=== PATIENT | female | born 1965 | race Native Hawaiian/Other Pacific Islander ===

== ENCOUNTER 2017-09-08 15:26 | Inpatient (IN) ==
--- NOTE | 2017-09-08 16:42 | ED ---
HPI General Chief complaint: Wound/Laceration Stated complaint: Toe pain/diabetic Time Seen by Provider: 09/08/17 16:04 Source: patient Mode of arrival: ambulatory Limitations: no limitations History of Present Illness HPI narrative: 51y female with a history of diabetes mellitus type 2 from [place] presents to the ED with a wound to the distal right 2nd toe. Says she noticed this toe swelling and red yesterday and it has worsened over the last day. She is concerned because she does not know why this is going on. She denies pain. She denies trauma to the area. Denies any other medical problems and only takes insulin for her diabetes. Denies fevers, chills, chest pain, shortness of breath, nausea, vomiting. Denies history of similar episodes. Onset (ago): day(s) Location: lower extremity Radiation: non-radiation Associated symptoms: fever/chills (chills) Treatments prior to arrival: none Related Data Home Medications Medication Instructions Recorded Confirmed insulin NPH and regular human 1 sliding scale dose SUB-Q UD 09/08/17 09/08/17 [Novolin 70/30 U-100 Insulin] Allergies Allergy/AdvReac Type Severity Reaction Status Date / Time No Known Allergies Allergy Unverified 09/08/17 16:37 Review of Systems Except as stated in HPI: all other systems reviewed are negative [facility] Medical History Medical History Diabetes (Acute) Social History Social History Substance History: No History of Abuse Second Hand Smoke Exposure: No Smoking Status: Never smoker How Often Do You Have a Drink Containing Alcohol: Never Recent Travel in [facility] within the Last 8 Weeks: No Recent Out of Country Travel within the Last 8 Weeks: Yes Immunization History Tetanus Immunization: Unsure Hx Influenza Vaccine This Season: No Exam Narrative Exam Narrative: GENERAL: WD, WN pleasant, resting comfortably in bed. SKIN: Focused skin assessment warm/dry. right foot, 2nd toe-ecchymosis present to the entire toe, distal aspect with a 1 -2 mm opening of skin with a frothy bloody discharge, no crepitus of the toe, no evidence of trauma, neurovascularly intact right lower extremity. HEAD: Atraumatic. Normocephalic. EYES: Pupils equal and round. No scleral icterus. No injection or drainage. ENT: No nasal bleeding or discharge. Mucous membranes pink and moist. NECK: Trachea midline. No JVD. CARDIOVASCULAR: Regular rate and rhythm. No murmur appreciated. RESPIRATORY: No accessory muscle use. Clear to auscultation. Breath sounds equal bilaterally. GASTROINTESTINAL: Abdomen soft, non-tender, nondistended. Hepatic and splenic margins not palpable. MUSCULOSKELETAL: No obvious deformities. No clubbing. No cyanosis. No edema. NEUROLOGICAL: Awake and alert. No obvious cranial nerve deficits. Motor grossly within normal limits. Normal speech. PSYCHIATRIC: Appropriate mood and affect; insight and judgment normal. Course Initial Documented Vital Signs Temperature 99 F 09/08/17 15:30 Pulse Rate 106 H 09/08/17 15:30 Respiratory Rate 20 09/08/17 15:30 Blood Pressure 197/86 H 09/08/17 15:30 Pulse Oximetry 98 09/08/17 15:30 Last Documented Vital Signs Temperature 97.9 F 09/09/17 08:00 Pulse Rate 81 09/09/17 08:00 Respiratory Rate 17 09/09/17 08:00 Blood Pressure 125/68 09/09/17 08:00 Pulse Oximetry 96 09/09/17 08:00 Medical Decision Making [facility] Narrative Medical decision making narrative: 51y female presents to the ED with concern of a wound to the right second toe. She denies pain or inciting events. Denies fevers but admits to chills. She is visiting from [place]. She says she has well controlled diabetes. No history of severe toe infections or amputations previously. Labs and xray consistent with osteomyelitis. Vancomycin and zosyn initiated. Wound culture obtained. I spoke with Dr. Shah who agreed to the admission. Differential Diagnosis Differential Diagnosis: Right foot osteomyelitis, cellulitis, erysipelas Lab Data Result diagrams: 09/09/17 07:50 09/09/17 07:50 Lab Results 09/08/17 09/08/17 09/08/17 Range/Units 17:45 17:45 17:45 WBC 12.4 H (4.0-11.0) th/mm3 RBC 4.44 (4.00-5.30) mil/mm3 Hgb 12.5 (11.6-15.3) gm/dL Hct 37.2 (35.0-46.0) % MCV 83.9 (80.0-100.0) fL MCH 28.1 (27.0-34.0) pg MCHC 33.5 (32.0-36.0) % RDW 12.9 (11.6-17.2) % Plt Count 316 (150-450) th/mm3 MPV 7.1 (7.0-11.0) fL Neut % (Auto) 82.0 H (16.0-70.0) % Lymph % (Auto) 12.2 (9.0-44.0) % [place] % (Auto) 5.0 (0.0-8.0) % Eos % (Auto) 0.3 (0.0-4.0) % Baso % (Auto) 0.5 (0.0-2.0) % Neut # (Auto) 10.2 H (1.8-7.7) th/mm3 Lymph # (Auto) 1.5 (1.0-4.8) th/mm3 [place] # (Auto) 0.6 (0.0-0.9) th/mm3 Eos # (Auto) 0.0 (0.0-0.4) th/mm3 Baso # (Auto) 0.1 (0.0-0.2) th/mm3 WBC Differential . Differential Comment Auto diff final ESR (0-30) mm/hr PT 11.4 (9.8-11.6) sec INR 1.1 Ratio APTT 25.9 (24.3-30.1) sec Sodium 135 L (136-145) meq/L Potassium 4.3 (3.5-5.1) meq/L Chloride 100 (98-107) meq/L Carbon Dioxide 26.7 (21.0-32.0) meq/L Anion Gap 8 (5-15) meq/L BUN 16 (7-18) mg/dL Creatinine 0.89 (0.50-1.00) mg/dL Estimated GFR 67 L (>89) mL/min POC Glucose (68-110) mg/dl Random Glucose 344 H (74-106) mg/dL Calcium 9.0 (8.5-10.1) mg/dL Total Bilirubin (0.2-1.0) mg/dL AST (15-37) U/L ALT (10-53) U/L Alkaline Phosphatase (45-117) U/L C-Reactive Protein (0.00-0.30) mg/dL Total Protein (6.4-8.2) g/dL Albumin (3.4-5.0) g/dL 09/08/17 09/08/17 09/08/17 Range/Units 17:45 17:45 21:08 WBC (4.0-11.0) th/mm3 RBC (4.00-5.30) mil/mm3 Hgb (11.6-15.3) gm/dL Hct (35.0-46.0) % MCV (80.0-100.0) fL MCH (27.0-34.0) pg MCHC (32.0-36.0) % RDW (11.6-17.2) % Plt Count (150-450) th/mm3 MPV (7.0-11.0) fL Neut % (Auto) (16.0-70.0) % Lymph % (Auto) (9.0-44.0) % [place] % (Auto) (0.0-8.0) % Eos % (Auto) (0.0-4.0) % Baso % (Auto) (0.0-2.0) % Neut # (Auto) (1.8-7.7) th/mm3 Lymph # (Auto) (1.0-4.8) th/mm3 [place] # (Auto) (0.0-0.9) th/mm3 Eos # (Auto) (0.0-0.4) th/mm3 Baso # (Auto) (0.0-0.2) th/mm3 WBC Differential Differential Comment ESR 49 H (0-30) mm/hr PT (9.8-11.6) sec INR Ratio APTT (24.3-30.1) sec Sodium (136-145) meq/L Potassium (3.5-5.1) meq/L Chloride (98-107) meq/L Carbon Dioxide (21.0-32.0) meq/L Anion Gap (5-15) meq/L BUN (7-18) mg/dL Creatinine (0.50-1.00) mg/dL Estimated GFR (>89) mL/min POC Glucose 298 H (68-110) mg/dl Random Glucose (74-106) mg/dL Calcium (8.5-10.1) mg/dL Total Bilirubin (0.2-1.0) mg/dL AST (15-37) U/L ALT (10-53) U/L Alkaline Phosphatase (45-117) U/L C-Reactive Protein 10.00 H (0.00-0.30) mg/dL Total Protein (6.4-8.2) g/dL Albumin (3.4-5.0) g/dL 09/08/17 09/09/17 09/09/17 Range/Units 21:14 07:37 07:50 WBC 9.6 (4.0-11.0) th/mm3 RBC 4.27 (4.00-5.30) mil/mm3 Hgb 12.2 (11.6-15.3) gm/dL Hct 35.8 (35.0-46.0) % MCV 83.9 (80.0-100.0) fL MCH 28.6 (27.0-34.0) pg MCHC 34.1 (32.0-36.0) % RDW 12.6 (11.6-17.2) % Plt Count 319 (150-450) th/mm3 MPV 6.8 L (7.0-11.0) fL Neut % (Auto) 62.1 (16.0-70.0) % Lymph % (Auto) 29.7 (9.0-44.0) % [place] % (Auto) 6.6 (0.0-8.0) % Eos % (Auto) 1.2 (0.0-4.0) % Baso % (Auto) 0.4 (0.0-2.0) % Neut # (Auto) 6.0 (1.8-7.7) th/mm3 Lymph # (Auto) 2.9 (1.0-4.8) th/mm3 [place] # (Auto) 0.6 (0.0-0.9) th/mm3 Eos # (Auto) 0.1 (0.0-0.4) th/mm3 Baso # (Auto) 0.0 (0.0-0.2) th/mm3 WBC Differential . Differential Comment Auto diff final ESR (0-30) mm/hr PT (9.8-11.6) sec INR Ratio APTT (24.3-30.1) sec Sodium 138 (136-145) meq/L Potassium 4.0 (3.5-5.1) meq/L Chloride 103 (98-107) meq/L Carbon Dioxide 29.3 (21.0-32.0) meq/L Anion Gap 6 (5-15) meq/L BUN 14 (7-18) mg/dL Creatinine 0.77 (0.50-1.00) mg/dL Estimated GFR 79 L (>89) mL/min POC Glucose 280 H (68-110) mg/dl Random Glucose 260 H (74-106) mg/dL Calcium 8.9 (8.5-10.1) mg/dL Total Bilirubin 0.4 (0.2-1.0) mg/dL AST 28 (15-37) U/L ALT 37 (10-53) U/L Alkaline Phosphatase 87 (45-117) U/L C-Reactive Protein (0.00-0.30) mg/dL Total Protein 8.3 H (6.4-8.2) g/dL Albumin 3.2 L (3.4-5.0) g/dL 09/09/17 Range/Units 07:50 WBC (4.0-11.0) th/mm3 RBC (4.00-5.30) mil/mm3 Hgb (11.6-15.3) gm/dL Hct (35.0-46.0) % MCV (80.0-100.0) fL MCH (27.0-34.0) pg MCHC (32.0-36.0) % RDW (11.6-17.2) % Plt Count (150-450) th/mm3 MPV (7.0-11.0) fL Neut % (Auto) (16.0-70.0) % Lymph % (Auto) (9.0-44.0) % [place] % (Auto) (0.0-8.0) % Eos % (Auto) (0.0-4.0) % Baso % (Auto) (0.0-2.0) % Neut # (Auto) (1.8-7.7) th/mm3 Lymph # (Auto) (1.0-4.8) th/mm3 [place] # (Auto) (0.0-0.9) th/mm3 Eos # (Auto) (0.0-0.4) th/mm3 Baso # (Auto) (0.0-0.2) th/mm3 WBC Differential Differential Comment ESR (0-30) mm/hr PT (9.8-11.6) sec INR Ratio APTT (24.3-30.1) sec Sodium 138 (136-145) meq/L Potassium 4.4 (3.5-5.1) meq/L Chloride 107 (98-107) meq/L Carbon Dioxide 25.6 (21.0-32.0) meq/L Anion Gap 5 (5-15) meq/L BUN 15 (7-18) mg/dL Creatinine 0.72 (0.50-1.00) mg/dL Estimated GFR 85 L (>89) mL/min POC Glucose (68-110) mg/dl Random Glucose 296 H (74-106) mg/dL Calcium 8.3 L (8.5-10.1) mg/dL Total Bilirubin 0.4 (0.2-1.0) mg/dL AST 29 (15-37) U/L ALT 36 (10-53) U/L Alkaline Phosphatase 72 (45-117) U/L C-Reactive Protein (0.00-0.30) mg/dL Total Protein 7.4 D (6.4-8.2) g/dL Albumin 2.8 L (3.4-5.0) g/dL Imaging Data Radiologist's impression: Foot X-Ray 09/08/17 16:37 CONCLUSION: Resorption of the tuft of the second distal phalanx with overlying soft tissue swelling. The findings are characteristic of osteomyelitis. Discharge Plan Discharge Disposition Patient Disposition: 30 Still Patient Discharge Condition Condition: Stable Discharge Details Diagnosis: Osteomyelitis Physicians Team ED Provider: Rachel Machado ED Midlevel Provider: Lisy Song Primary Care Provider: UNKNOWN, Attending Provider: Angel Jimenez Other Providers: Mee Burns ; Halima Viramontes Status ED Status: Left Department Discharge Information Discharge Date/Time: 09/08/17 20:56
--- NOTE | 2017-09-08 17:14 | XR ---
EXAM DATE: 09/08/2017 4:57 PM EDT AGE/SEX: 51 years / Female INDICATIONS: Right foot second digit pain. CLINICAL DATA: This is the patient's initial encounter. Patient reports that signs and symptoms have been present for 2 days and indicates a pain score of 3/10. MEDICAL/SURGICAL HISTORY: . Diabetes None. COMPARISON: No prior exams available for comparison. FINDINGS: Limited AP and lateral views of the right foot were obtained and demonstrate focal soft tissue swelli ng over the distal second digit. There is resorption of the distal phalanx with mild irregularity. Th ere are no radiopaque foreign bodies. There are mild degenerative changes in the metatarsal tarsal misti ints and intertarsal joints. There is normal alignment. CONCLUSION: Resorption of the tuft of the second distal phalanx with overlying soft tissue swelling. The findings are characteristic of osteomyelitis. Electronically signed by: Juan Carlos Sabillon MD 09/08/2017 5:13 PM EDT
[2017-09-08] MEDS ORDERED: Piperacil/Tazo 3.375 GM Premix 50 ML IV.SIG ONE (17:30)
[2017-09-08 18:11] LABS: Baso # (Auto) 0.1 th/mm3 (0.0-0.2); Baso % (Auto) 0.5 % (0.0-2.0); Eos % (Auto) 0.3 % (0.0-4.0); Hematocrit 37.2 % (35.0-46.0); Hemoglobin 12.5 gm/dL (11.6-15.3); Lymph # (Auto) 1.5 th/mm3 (1.0-4.8); Lymph % (Auto) 12.2 % (9.0-44.0); Mean Corpuscular HGB Conc 33.5 % (32.0-36.0); Mean Corpuscular Hemoglobin 28.1 pg (27.0-34.0); Mean Corpuscular Volume 83.9 fL (80.0-100.0); Mean Platelet Volume 7.1 fL (7.0-11.0); Mono # (Auto) 0.6 th/mm3 (0.0-0.9); Neut # (Auto) 10.2 th/mm3 (1.8-7.7); Platelet Count 316 th/mm3 (150-450); Red Blood Count 4.44 mil/mm3 (4.00-5.30); Red Cell Distribution Width 12.9 % (11.6-17.2); White Blood Count 12.4 th/mm3 (4.0-11.0)
[2017-09-08 18:19] LABS: Activated Partial Thrombo Time 25.9 sec (24.3-30.1); INR 1.1 Ratio; Prothrombin Time 11.4 sec (9.8-11.6)
[2017-09-08 18:23] LABS: Carbon Dioxide 26.7 meq/L (21.0-32.0); Potassium 4.3 meq/L (3.5-5.1)
[2017-09-08] MEDS ORDERED: Vancomycin Inj 1,500 MG in Sodium Chlor 0.9% Inj 500 ML IV.SIG ONE (18:26)
[2017-09-08] MEDS ORDERED: Morphine Inj 4 MG/ML Vial IV.PUSH PRN (19:21)
[2017-09-08] MEDS ORDERED: Bisacodyl 10 MG Supp RECTAL PRN (19:22)
[2017-09-08] MEDS ORDERED: Temazepam 15 MG Capsule PO PRN (19:22)
[2017-09-08] MEDS ORDERED: Acetaminophen 325 MG Tablet PO PRN (19:22)
[2017-09-08] MEDS ORDERED: Dextrose 50% in Water 50 ML Vial IV.PUSH PRN (19:23)
--- NOTE | 2017-09-08 19:24 | P.HPIM ---
History of Present Illness Primary Care Physician: UNKNOWN History of Present Illness: This is a 51-year-old female visiting from [place] with a PMH of DM who presented to the ER with complaints of right second toe swelling and redness x2 days. Denies injury/trauma or previous h/o similar symptoms. Reports subjective fever/chills, but no nausea, vomiting, diarrhea, cough or sick contacts. On arrival, BP 197/86, HR 106, O2 sat 98% on RA, Temp 99.7. WBC 12.4. INR 1.1. Chemistry essentially unremarkable except for GFR 67, BS 344. CRP 10. Foot X-ray with resorption of the tuft of second distal phalanx with overlying soft tissue swelling, characteristic of osteomyelitis. S/p Vanc/ Zosyn in ER. - Diagnosis (1) Sepsis (2) Osteomyelitis (3) DM (diabetes mellitus) Review of Systems All other systems reviewed negative except as stated in HPI PMFSH - History History Provided By: Patient - Medical History Medical History: Medical History (Last Updated 09/08/17 @ 15:55 by Bennie Wilde) Diabetes - Tobacco History Second Hand Smoke Exposure: No Tobacco Use In Past 30 Days: No Smoking Status: Never smoker - Alcohol History How Often Do You Have a Drink Containing Alcohol: Monthly or less - Substance Use History Substance History: No History of Abuse - Travel History Recent Travel in the [place] Within the Last 8 Weeks: No Recent Travel Out of the Country Within the Last 8 Weeks: Yes - Immunization History Tetanus Immunization: Unsure Hx Influenza Vaccine This Season: No Medications and Allergies Active Medications: Active Medications Vancomycin HCl 1,500 mg/ (Sodium Chloride) 515 mls @ 250 mls/hr IV.SIG ONCE ONE Stop: 09/08/17 20:29 Allergies Allergy/AdvReac Type Severity Reaction Status Date / Time No Known Allergies Allergy Unverified 09/08/17 16:37 Home Medications Medication Instructions Recorded Confirmed Type insulin NPH and regular human 1 sliding scale dose SUB-Q UD 09/08/17 09/08/17 History [Novolin 70/30 U-100 Insulin] Exam Vital signs: Vital Signs 09/08/17 15:30 09/08/17 15:34 Temperature 99 F 99.7 F H Pulse Rate 106 H 97 H Respiratory Rate 20 18 Blood Pressure 197/86 H 160/69 H Pulse Oximetry 98 100 Intake & Output 07/09/08/17 09/09/17 06:59 18:59 06:59 Weight 72.575 kg Narrative: PE: GENERAL: Very pleasant middle-aged female in no acute distress. HEENT: PERRLA, EOMI. No scleral icterus or conjunctival pallor. No lid lag or facial droop. CARDIOVASCULAR: Regular rate and rhythm. No obvious murmurs to auscultation. No chest tenderness to palpation. RESPIRATORY: No obvious rhonchi or wheezing. Clear to auscultation. Breath sounds equal bilaterally. GASTROINTESTINAL: Abdomen soft, non-tender, nondistended. BS normal. MUSCULOSKELETAL: Extremities without clubbing, cyanosis, or edema. No obvious deformities. Right 2nd toe w/ ecchymosis, sanguinous drainage from tip. No tenderness to palpation. NEUROLOGICAL: Awake, alert and oriented x4. No focal neurologic deficits. Moving both upper and lower extremities spontaneously. Results - Labs CBC & Chem 7: 09/08/17 17:45 09/08/17 17:45 Labs: Short CBC 09/08/17 Range/Units 17:45 WBC 12.4 H (4.0-11.0) th/mm3 Hgb 12.5 (11.6-15.3) gm/dL Hct 37.2 (35.0-46.0) % Plt Count 316 (150-450) th/mm3 BMP 09/08/17 17:45 Sodium 135 L Potassium 4.3 Chloride 100 Carbon Dioxide 26.7 BUN 16 Creatinine 0.89 Calcium 9.0 - Imaging Impressions Foot X-Ray 09/08/17 16:37 CONCLUSION: Resorption of the tuft of the second distal phalanx with overlying soft tissue swelling. The findings are characteristic of osteomyelitis. Caprini VTE Risk Assessment Caprini VTE Risk Assessment: No/Low Risk (score <= 1) Caprini Risk Assessment Model: Point Value = 1 Point Value = 2 Point Value = 3 Point Value = 5 Age 41-60 Minor surgery BMI > 25 kg/m2 Swollen legs Varicose veins or History of unexplained or recurrent spontaneous Oral contraceptives or hormone replacement Sepsis (< 1 month) Serious lung disease, including pneumonia (< 1 month) Abnormal pulmonary function Acute myocardial infarction Congestive heart failure (< 1 month) History of inflammatory bowel disease Medical patient at bed rest Age 61-74 Arthroscopic surgery Major open surgery (> 45 min) Laparoscopic surgery (> 45 min) Malignancy Confined to bed (> 72 hours) Immobilizing plaster cast Central venous access Age >= 75 History of VTE Family history of VTE Factor V Leiden Prothrombin [id number] Lupus anticoagulant Anticardiolipin antibodies Elevated serum homocysteine Heparin-induced thrombocytopenia Other congenital or acquired thrombophilia Stroke (< 1 month) Elective arthroplasty Hip, pelvis, or leg fracture Acute spinal cord injury (< 1 month) Prophylaxis Regimen: Total Risk Factor Score Risk Level Prophylaxis Regimen 0-1 Low Early ambulation 2 Moderate Order ONE of the following: *Sequential Compression Device (SCD) *Heparin 5000 units SQ BID 3-4 Higher Order ONE of the following medications: *Heparin 5000 units SQ TID *Enoxaparin/Lovenox 40 mg SQ daily (WT < 150 kg, CrCl > 30 mL/min) *Enoxaparin/Lovenox 30 mg SQ daily (WT < 150 kg, CrCl > 10-29 mL/min) *Enoxaparin/Lovenox 30 mg SQ BID (WT < 150 kg, CrCl > 30 mL/min) AND/OR *Sequential Compression Device (SCD) 5 or more Highest Order ONE of the following medications: *Heparin 5000 units SQ TID (Preferred with Epidurals) *Enoxaparin/Lovenox 40 mg SQ daily (WT < 150 kg, CrCl > 30 mL/min) *Enoxaparin/Lovenox 30 mg SQ daily (WT < 150 kg, CrCl > 10-29 mL/min) *Enoxaparin/Lovenox 30 mg SQ BID (WT < 150 kg, CrCl > 30 mL/min) AND *Sequential Compression Device (SCD) Assessment and Plan - Assessment (1) Sepsis Code(s): A41.9 - Sepsis, unspecified organism Status: Acute (2) Osteomyelitis Code(s): M86.9 - Osteomyelitis, unspecified Status: Acute (3) DM (diabetes mellitus) Code(s): E11.9 - Type 2 diabetes mellitus without complications Status: Acute - Plan A/P: 1. Sepsis: Temp 99.7, HR 106, WBC 12, Source-Right toe infection, s/p Blood Cultures, Vanc/Zosyn, continue w/ IV Abx, follow up cultures, continue IVF. 2. Osteomyelitis: Right 2nd Toe, X-ray w/ findings indicative of osteomyelitis , images reviewed. Continue w/ IV Abx as above, Consult Podiatry for further evaluation/intervention, consult ID for recommendations on antibiotic therapy/ duration. Pt lives in [place], scheduled to return home 09/26/17, will need to make arrangements w/ PCP in [place] for continuation of long-term antibiotics if needed. 3. DM: Uncontrolled. BS 300's. Sliding scale w/ Accu-Cheks. Check Hgb A1c. 4. DVT Prophylaxis: Heparin sq 5. Social work for d/c planning as needed. 6. Case discussed w/ ER Physician at length, labs/records/imaging reviewed by me. (2) Osteomyelitis Qualifiers: Osteomyelitis type: other acute Osteomyelitis location: foot Laterality: right Qualified Code(s): M86.171 - Other acute osteomyelitis, right ankle and foot
[2017-09-08] MEDS ORDERED: Vancomycin Consult Pharmacy 1 EACH OTHER SCH (20:00)
[2017-09-08] MEDS: Sod Chloride 0.9% Inj 1,000 ML IV.CONT SCH (21:11)
[2017-09-08] MEDS: Senna/Docusate Sodium 8.6/50 MG Tablet PO SCH (21:12)
[2017-09-08] MEDS: Insulin NovoLOG Aspart Correctional Sugar Inj SQ SCH (21:13)
[2017-09-08 22:23] LABS: Alanine Aminotransferase 37 U/L (10-53); Albumin 3.2 g/dL (3.4-5.0); Anion Gap 6 meq/L (5-15); Aspartate Aminotransferase 28 U/L (15-37); Blood Urea Nitrogen 14 mg/dL (7-18); Calcium 8.9 mg/dL (8.5-10.1); Carbon Dioxide 29.3 meq/L (21.0-32.0); Chloride 103 meq/L (98-107); Glomerular Filtration Rate 79 mL/min (>89); Glucose,Random 260 mg/dL (74-106); Sodium 138 meq/L (136-145)
[2017-09-08 22:25] LABS: Alkaline Phosphatase 87 U/L (45-117); Total Protein 8.3 g/dL (6.4-8.2)
[2017-09-09] MEDS: Sod Chloride 0.9% Inj 1,000 ML IV.CONT SCH ×2 (07:51→17:25)
[2017-09-09 08:25] LABS: Baso % (Auto) 0.4 % (0.0-2.0); Eos # (Auto) 0.1 th/mm3 (0.0-0.4); Eos % (Auto) 1.2 % (0.0-4.0); Hematocrit 35.8 % (35.0-46.0); Hemoglobin 12.2 gm/dL (11.6-15.3); Lymph # (Auto) 2.9 th/mm3 (1.0-4.8); Lymph % (Auto) 29.7 % (9.0-44.0); Mean Corpuscular HGB Conc 34.1 % (32.0-36.0); Mean Corpuscular Hemoglobin 28.6 pg (27.0-34.0); Mean Corpuscular Volume 83.9 fL (80.0-100.0); Mean Platelet Volume 6.8 fL (7.0-11.0); Mono # (Auto) 0.6 th/mm3 (0.0-0.9); Mono % (Auto) 6.6 % (0.0-8.0); Neut % (Auto) 62.1 % (16.0-70.0); Platelet Count 319 th/mm3 (150-450); Red Blood Count 4.27 mil/mm3 (4.00-5.30); Red Cell Distribution Width 12.6 % (11.6-17.2); White Blood Count 9.6 th/mm3 (4.0-11.0)
[2017-09-09 08:49] LABS: Albumin 2.8 g/dL (3.4-5.0); Anion Gap 5 meq/L (5-15); Aspartate Aminotransferase 29 U/L (15-37); Blood Urea Nitrogen 15 mg/dL (7-18); Calcium 8.3 mg/dL (8.5-10.1); Carbon Dioxide 25.6 meq/L (21.0-32.0); Chloride 107 meq/L (98-107); Glomerular Filtration Rate 85 mL/min (>89); Glucose,Random 296 mg/dL (74-106); Potassium 4.4 meq/L (3.5-5.1); Sodium 138 meq/L (136-145)
[2017-09-09] MEDS: Heparin - SQ 10,000 UNITS/ML Vial SQ SCH ×2 (08:50→20:17)
[2017-09-09] MEDS: Senna/Docusate Sodium 8.6/50 MG Tablet PO SCH ×2 (08:51→20:17)
[2017-09-09] MEDS: Insulin NovoLOG Aspart Correctional Sugar Inj SQ SCH ×4 (08:51→20:18)
[2017-09-09 08:52] LABS: Alanine Aminotransferase 36 U/L (10-53); Alkaline Phosphatase 72 U/L (45-117); Total Protein 7.4 g/dL (6.4-8.2)
[2017-09-09] MEDS ORDERED: Gadobutrol PF 10 MMOL/10 ML Vial (for RAD) IV.SIG ONE (11:03)
[2017-09-09] MEDS: Vancomycin Inj 1,500 MG in Sodium Chlor 0.9% Inj 500 ML IV.SIG SCH ×2 (11:21→22:50)
--- NOTE | 2017-09-09 11:28 | MR ---
EXAM DATE: 09/09/2017 11:16 AM EDT AGE/SEX: 51 years / Female INDICATIONS: Osteomyelitis. Distal 2nd digit right foot. CLINICAL DATA: This is the patient's initial encounter. Patient reports that signs and symptoms have been present for 2 days and indicates a pain score of 2/10. MEDICAL/SURGICAL HISTORY: Diabetes mellitus type II. Hysterectomy. [place] [facility] [place]. . TECHNIQUE: Multiplanar, multisequence MRI examination was performed without contrast and after th e intravenous administration of 7 ml Gadavist (gadobutrol) single exam dose. FINDINGS: Bones: The osseous structures are in normal alignment. There is destructive change and marrow edema i nvolving the second distal phalanx. There is surrounding soft tissue swelling. The bony structures de monstrate normal marrow signal.. There are no obvious erosions present. Joint Spaces: No joint effusion or loose bodies are seen. The joint spaces are preserved. Tendons: The flexor tendons are intact. Soft Tissues: There is soft tissue edema greatest involving the dorsal soft tissues. Other: The plantar fascia is intact. No signal abnormalities are seen in the plantar musculature. Post Contrast: There are no abnormal areas of enhancement in the marrow, muscle or soft tissues on im ages obtained after intravenous administration of gadolinium. CONCLUSION: 1. Destructive change and marrow edema involving the second distal phalanx characteristic of osteomy elitis. 2. Soft tissue edema involving the dorsal soft tissues. Electronically signed by: Juan Carlos Sabillon MD 09/09/2017 11:26 AM EDT
[2017-09-09 11:35] LABS: Hemoglobin A1c 9.8 % (4.3-6.0)
--- NOTE | 2017-09-09 12:15 | P.CONPOD ---
History of Present Illness Service: Foot and ankle surgery/podiatry Consult date: 09/09/17 Primary Care Provider: UNKNOWN Chief Complaint: Right second digit ulceration History of Present Illness: Podiatry consulted for this 51-year-old female with history of diabetes type 2 from [place] who presented to the ED with wound to distal aspect of right second toe. Patient states she noticed discoloration and swelling over the past 24 hours. 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 She denies any nausea vomiting fevers or chills. PMFSH - History History Provided By: Patient - Medical History Medical History: Medical History (Last Reviewed 09/09/17 @ 12:10 by Halima Viramontes DPM) Diabetes - Tobacco History Second Hand Smoke Exposure: No Tobacco Use In Past 30 Days: No Smoking Status: Never smoker - Alcohol History How Often Do You Have a Drink Containing Alcohol: Never - Substance Use History Substance History: No History of Abuse - Travel History Recent Travel in the [place] Within the Last 8 Weeks: No Recent Travel Out of the Country Within the Last 8 Weeks: Yes - Immunization History Tetanus Immunization: Unsure Hx Influenza Vaccine This Season: No Medications and Allergies Active Medications: Active Medications Acetaminophen (Tylenol) 650 mg PO Q4H PRN PRN Reason: Temp > 100.4 Hydrocodone Bitart/Acetaminophen ([place] 5/325) 1 tab PO Q4H PRN PRN Reason: PAIN 3-5 Al Hydroxide/Mg Hydroxide (Milk Of Magnesia Liq) 30 ml PO Q12H PRN PRN Reason: Mild Constipation Bisacodyl (Dulcolax Supp) 10 mg RECTAL DAILY PRN PRN Reason: SEVERE CONSITIPATION Dextrose (D50w Vial) 50 ml IV.PUSH UNSCH PRN PRN Reason: PER HYPOGLYCEMIA PROTOCOL Diphenhydramine HCl (Benadryl Inj) 25 mg IV.PUSH Q6H PRN PRN Reason: ITCHING/RASH Last Admin: 09/08/17 22:42 Dose: 25 mg Glucagon (Glucagon Inj) 1 mg OTHER PRN PRN PRN Reason: for Hypoglycemia Protocol Heparin Sodium (Porcine) (Heparin Inj) 5,000 units SQ Q12H [facility] Last Admin: 09/09/17 08:50 Dose: 5,000 units Cefepime HCl 1,000 mg/ Sodium (Chloride) 100 mls @ 200 mls/hr IV.SIG Q12H [facility] Last Infusion: 09/09/17 11:13 Dose: Infused Sodium Chloride (Ns Inj) 1,000 mls @ 100 mls/hr IV.CONT .Q10H [facility] Last Admin: 09/09/17 07:51 Dose: 100 mls/hr Pharmacy Profile Note (Vancomycin Consult Pharmacy) 0 mls @ 0 mls/hr OTHER UNSCH [facility] Vancomycin HCl 1,500 mg/ (Sodium Chloride) 515 mls @ 250 mls/hr IV.SIG Q12H [facility] Last Admin: 09/09/17 11:21 Dose: 250 mls/hr Insulin Aspart (Novolog Insulin Correctional Sugar Inj) 0 unit SQ ACHS [facility]; Protocol Last Admin: 09/09/17 08:51 Dose: 5 unit Lactulose (Lactulose Liq) 30 ml PO DAILY PRN PRN Reason: SEVERE CONSITIPATION Miscellaneous Information ([facility] Ordered Lab Info) 0 each OTHER ONCE ONE Stop: 09/10/17 09:46 Morphine Sulfate (Morphine Inj) 2 mg IV.PUSH Q4H PRN PRN Reason: PAIN 6-10 Ondansetron HCl (Zofran Odt) 4 mg PO Q6H PRN PRN Reason: NAUSEA OR VOMITING Senna/Docusate Sodium (Felecia-Colace) 1 tab PO BID [facility] Last Admin: 09/09/17 08:51 Dose: 1 tab Sennosides (Senokot) 17.2 mg PO Q12H PRN PRN Reason: Moderate Constipation Temazepam (Restoril) 15 mg PO HS PRN PRN Reason: INSOMNIA Allergies Allergy/AdvReac Type Severity Reaction Status Date / Time No Known Allergies Allergy Unverified 09/08/17 16:37 Home Medications Medication Instructions Recorded Confirmed Type insulin NPH and regular human 1 sliding scale dose SUB-Q UD 09/08/17 09/08/17 History [Novolin 70/30 U-100 Insulin] Physical Exam Vital signs: Vital Signs 09/08/17 15:30 09/08/17 15:34 09/08/17 19:25 Temperature 99 F 99.7 F H 98.1 F Pulse Rate 106 H 97 H 85 Respiratory Rate 20 18 14 Blood Pressure 197/86 H 160/69 H 152/70 H Pulse Oximetry 98 100 98 09/08/17 20:44 09/09/17 00:00 09/09/17 04:00 Temperature 98.0 F 97.9 F 98.6 F Pulse Rate 88 82 84 Respiratory Rate 21 20 20 Blood Pressure 166/75 H 123/60 132/81 Pulse Oximetry 99 95 99 09/09/17 05:17 09/09/17 08:00 Temperature 97.9 F Pulse Rate 85 81 Respiratory Rate 17 Blood Pressure 125/68 Pulse Oximetry 96 Intake & Output 09/08/17 09/09/17 09/09/17 18:59 06:59 18:59 Intake Total 565 / 565 1100 / 1100 Balance 565 / 565 1100 / 1100 Weight 72.575 kg 72.5 kg Intake: IV 565 / 565 1100 / 1100 NS Inj 1,000 ML @ 100 mls/hr IV 1000 / 1000 .CONT .Q10H [facility] Rx#:[id number] Maxipime Inj 1,000 MG In NS Inj 100 / 100 100 ML @ 200 mls/hr IV.SIG Q12H [facility] Rx#:[id number] Zosyn 3.375 GM Premix 50 ML @ 50 / 50 100 mls/hr IV.SIG ONCE ONE Rx#: [id number] Vancomycin Inj 1,500 MG In NS 515 / 515 Inj 500 ML @ 250 mls/hr IV.SIG ONCE ONE Rx#:[id number] Other: # Voids 2 Weight On Admission 72.575 kg Narrative: GENERAL: This is a well-nourished, well-developed patient, in no apparent distress. SKIN: Right second digit wound HEAD: Atraumatic. EYES: Pupils equal round and reactive. ENT: Airway patent. NECK: Trachea midline. RESPIRATORY: Nonlabored breathing. MUSCULOSKELETAL:. Negative Homans sign bilaterally. NEUROLOGICAL: Awake and alert. Normal speech. Lower extremity physical exam: Vascular: Dorsalis pedis palpable, posterior tibial palpable. Capillary refill time within normal limits to digits 4, no capillary refill time to distal aspect of right second digit right foot. Edema present right second digit Neuro: Gross sensation intact to bilateral lower extremity. Pinpoint sensation decreased. No hyperalgesia noted to bilateral lower extremity Dermatology: Right second digit distal ulceration noted with necrosis and ischemia noted, seropurulent drainage noted upon compression, mild odor noted. Musculoskeletal: Tender to palpation to right second digit. Results - Labs CBC & Chem 7: 09/09/17 07:50 09/09/17 07:50 Laboratory Results - last 24 hr 09/08/17 09/08/17 09/08/17 17:45 17:45 17:45 WBC 12.4 H RBC 4.44 Hgb 12.5 Hct 37.2 MCV 83.9 MCH 28.1 MCHC 33.5 RDW 12.9 Plt Count 316 MPV 7.1 Neut % (Auto) 82.0 H Lymph % (Auto) 12.2 [place] % (Auto) 5.0 Eos % (Auto) 0.3 Baso % (Auto) 0.5 Neut # (Auto) 10.2 H Lymph # (Auto) 1.5 [place] # (Auto) 0.6 Eos # (Auto) 0.0 Baso # (Auto) 0.1 WBC Differential . Differential Comment Auto diff final ESR PT 11.4 INR 1.1 APTT 25.9 Sodium 135 L Potassium 4.3 Chloride 100 Carbon Dioxide 26.7 Anion Gap 8 BUN 16 Creatinine 0.89 Estimated GFR 67 L POC Glucose Random Glucose 344 H Calcium 9.0 Total Bilirubin AST ALT Alkaline Phosphatase C-Reactive Protein Total Protein Albumin 09/08/17 09/08/17 09/08/17 17:45 17:45 21:08 WBC RBC Hgb Hct MCV MCH MCHC RDW Plt Count MPV Neut % (Auto) Lymph % (Auto) [place] % (Auto) Eos % (Auto) Baso % (Auto) Neut # (Auto) Lymph # (Auto) [place] # (Auto) Eos # (Auto) Baso # (Auto) WBC Differential Differential Comment ESR 49 H PT INR APTT Sodium Potassium Chloride Carbon Dioxide Anion Gap BUN Creatinine Estimated GFR POC Glucose 298 H Random Glucose Calcium Total Bilirubin AST ALT Alkaline Phosphatase C-Reactive Protein 10.00 H Total Protein Albumin 09/08/17 09/09/17 09/09/17 21:14 07:37 07:50 WBC 9.6 RBC 4.27 Hgb 12.2 Hct 35.8 MCV 83.9 MCH 28.6 MCHC 34.1 RDW 12.6 Plt Count 319 MPV 6.8 L Neut % (Auto) 62.1 Lymph % (Auto) 29.7 [place] % (Auto) 6.6 Eos % (Auto) 1.2 Baso % (Auto) 0.4 Neut # (Auto) 6.0 Lymph # (Auto) 2.9 [place] # (Auto) 0.6 Eos # (Auto) 0.1 Baso # (Auto) 0.0 WBC Differential . Differential Comment Auto diff final ESR PT INR APTT Sodium 138 Potassium 4.0 Chloride 103 Carbon Dioxide 29.3 Anion Gap 6 BUN 14 Creatinine 0.77 Estimated GFR 79 L POC Glucose 280 H Random Glucose 260 H Calcium 8.9 Total Bilirubin 0.4 AST 28 ALT 37 Alkaline Phosphatase 87 C-Reactive Protein Total Protein 8.3 H Albumin 3.2 L 09/09/17 09/09/17 07:50 11:58 WBC RBC Hgb Hct MCV MCH MCHC RDW Plt Count MPV Neut % (Auto) Lymph % (Auto) [place] % (Auto) Eos % (Auto) Baso % (Auto) Neut # (Auto) Lymph # (Auto) [place] # (Auto) Eos # (Auto) Baso # (Auto) WBC Differential Differential Comment ESR PT INR APTT Sodium 138 Potassium 4.4 Chloride 107 Carbon Dioxide 25.6 Anion Gap 5 BUN 15 Creatinine 0.72 Estimated GFR 85 L POC Glucose 302 H Random Glucose 296 H Calcium 8.3 L Total Bilirubin 0.4 AST 29 ALT 36 Alkaline Phosphatase 72 C-Reactive Protein Total Protein 7.4 D Albumin 2.8 L - Imaging Impressions Foot X-Ray 09/08/17 16:37 CONCLUSION: Resorption of the tuft of the second distal phalanx with overlying soft tissue swelling. The findings are characteristic of osteomyelitis. Foot MRI 09/09/17 00:00 CONCLUSION: 1. Destructive change and marrow edema involving the second distal phalanx characteristic of osteomyelitis. 2. Soft tissue edema involving the dorsal soft tissues. Assessment and Plan - Plan 51-year-old female with right second digit laceration, possible/most likely osteomyelitis to distal phalanx Patient examined and evaluated with all questions answered Will discuss with Dr. Vela who will be assuming patient care tomorrow Anticipate to the OR on Sunday for right second digit amputation We will obtain ABIs Discussed with patient Discussed all alternatives risks complications and benefits associated with right second digit amputation
--- NOTE | 2017-09-09 13:36 | P.PNIM ---
Subjective Interval history: Mrs. Somers was afebrile with intermittent HTN overnight (max SBP 184 today) ; intermittent tachycardia to 105 Bpm. Patient states that she is doing well; she denies significant foot pain at this time but states that she noticed toe change 3 days ago. Patient states that she otherwise has been doing well; no chest pain, shortness of breath, abnormal BM, or urination. Regarding her T2DM, patient has been on intermediate acting insulin 14 U BID at home; she has had stable glucose levels at home. Patient takes ASA at home. She does not use JOHNNA or statin. Patient gets eye assessments q 3 mo. She has bilateral lower extremity tenderness but not pain. Physical Exam Vital signs: Vital Signs 09/08/17 15:30 09/08/17 15:34 09/08/17 19:25 Temperature 99 F 99.7 F H 98.1 F Pulse Rate 106 H 97 H 85 Respiratory Rate 20 18 14 Blood Pressure 197/86 H 160/69 H 152/70 H Pulse Oximetry 98 100 98 09/08/17 20:44 09/09/17 00:00 09/09/17 04:00 Temperature 98.0 F 97.9 F 98.6 F Pulse Rate 88 82 84 Respiratory Rate 21 20 20 Blood Pressure 166/75 H 123/60 132/81 Pulse Oximetry 99 95 99 09/09/17 05:17 09/09/17 08:00 09/09/17 12:00 Temperature 97.9 F 97.4 F L Pulse Rate 85 81 105 H Respiratory Rate 17 17 Blood Pressure 125/68 184/82 H Pulse Oximetry 96 96 Intake & Output 09/08/17 09/09/17 09/09/17 18:59 06:59 18:59 Intake Total 565 / 565 1100 / 1100 Balance 565 / 565 1100 / 1100 Weight 72.575 kg 72.5 kg Intake: IV 565 / 565 1100 / 1100 NS Inj 1,000 ML @ 100 mls/hr IV 1000 / 1000 .CONT .Q10H [facility] Rx#:[id number] Maxipime Inj 1,000 MG In NS Inj 100 / 100 100 ML @ 200 mls/hr IV.SIG Q12H [facility] Rx#:[id number] Zosyn 3.375 GM Premix 50 ML @ 50 / 50 100 mls/hr IV.SIG ONCE ONE Rx#: [id number] Vancomycin Inj 1,500 MG In NS 515 / 515 Inj 500 ML @ 250 mls/hr IV.SIG ONCE ONE Rx#:[id number] Other: # Voids 2 Weight On Admission 72.575 kg Narrative: Gen: NAD HEENT: EOM grossly I Skin: No visible lesions; R 2nd toe/foot lesion not reassessed CV: Regular rate and rhythm; no murmurs. Adequate DP pulses bilaterally Resp: CTAB; normal rate Abdominal: Soft, nontender, nondistended Ext: Grossly normal ROM and motor function Neuro: Awake, alert. Grossly normal ROM. Grossly normal peripheral motor/ sensory function Results - Labs CBC & Chem 7: 09/09/17 07:50 09/09/17 07:50 Laboratory Results - last 24 hr 09/08/17 09/08/17 09/08/17 17:45 17:45 17:45 WBC 12.4 H RBC 4.44 Hgb 12.5 Hct 37.2 MCV 83.9 MCH 28.1 MCHC 33.5 RDW 12.9 Plt Count 316 MPV 7.1 Neut % (Auto) 82.0 H Lymph % (Auto) 12.2 [place] % (Auto) 5.0 Eos % (Auto) 0.3 Baso % (Auto) 0.5 Neut # (Auto) 10.2 H Lymph # (Auto) 1.5 [place] # (Auto) 0.6 Eos # (Auto) 0.0 Baso # (Auto) 0.1 WBC Differential . Differential Comment Auto diff final ESR PT 11.4 INR 1.1 APTT 25.9 Sodium 135 L Potassium 4.3 Chloride 100 Carbon Dioxide 26.7 Anion Gap 8 BUN 16 Creatinine 0.89 Estimated GFR 67 L POC Glucose Random Glucose 344 H Calcium 9.0 Total Bilirubin AST ALT Alkaline Phosphatase C-Reactive Protein Total Protein Albumin 09/08/17 09/08/17 09/08/17 17:45 17:45 21:08 WBC RBC Hgb Hct MCV MCH MCHC RDW Plt Count MPV Neut % (Auto) Lymph % (Auto) [place] % (Auto) Eos % (Auto) Baso % (Auto) Neut # (Auto) Lymph # (Auto) [place] # (Auto) Eos # (Auto) Baso # (Auto) WBC Differential Differential Comment ESR 49 H PT INR APTT Sodium Potassium Chloride Carbon Dioxide Anion Gap BUN Creatinine Estimated GFR POC Glucose 298 H Random Glucose Calcium Total Bilirubin AST ALT Alkaline Phosphatase C-Reactive Protein 10.00 H Total Protein Albumin 09/08/17 09/09/17 09/09/17 21:14 07:37 07:50 WBC 9.6 RBC 4.27 Hgb 12.2 Hct 35.8 MCV 83.9 MCH 28.6 MCHC 34.1 RDW 12.6 Plt Count 319 MPV 6.8 L Neut % (Auto) 62.1 Lymph % (Auto) 29.7 [place] % (Auto) 6.6 Eos % (Auto) 1.2 Baso % (Auto) 0.4 Neut # (Auto) 6.0 Lymph # (Auto) 2.9 [place] # (Auto) 0.6 Eos # (Auto) 0.1 Baso # (Auto) 0.0 WBC Differential . Differential Comment Auto diff final ESR PT INR APTT Sodium 138 Potassium 4.0 Chloride 103 Carbon Dioxide 29.3 Anion Gap 6 BUN 14 Creatinine 0.77 Estimated GFR 79 L POC Glucose 280 H Random Glucose 260 H Calcium 8.9 Total Bilirubin 0.4 AST 28 ALT 37 Alkaline Phosphatase 87 C-Reactive Protein Total Protein 8.3 H Albumin 3.2 L 09/09/17 09/09/17 07:50 11:58 WBC RBC Hgb Hct MCV MCH MCHC RDW Plt Count MPV Neut % (Auto) Lymph % (Auto) [place] % (Auto) Eos % (Auto) Baso % (Auto) Neut # (Auto) Lymph # (Auto) [place] # (Auto) Eos # (Auto) Baso # (Auto) WBC Differential Differential Comment ESR PT INR APTT Sodium 138 Potassium 4.4 Chloride 107 Carbon Dioxide 25.6 Anion Gap 5 BUN 15 Creatinine 0.72 Estimated GFR 85 L POC Glucose 302 H Random Glucose 296 H Calcium 8.3 L Total Bilirubin 0.4 AST 29 ALT 36 Alkaline Phosphatase 72 C-Reactive Protein Total Protein 7.4 D Albumin 2.8 L Microbiology 09/08/17 20:35 Wound - Toe Gram Stain - Final - Imaging Impressions Foot X-Ray 09/08/17 16:37 CONCLUSION: Resorption of the tuft of the second distal phalanx with overlying soft tissue swelling. The findings are characteristic of osteomyelitis. Foot MRI 09/09/17 00:00 CONCLUSION: 1. Destructive change and marrow edema involving the second distal phalanx characteristic of osteomyelitis. 2. Soft tissue edema involving the dorsal soft tissues. Assessment and Plan - Assessment (1) Sepsis Code(s): A41.9 - Sepsis, unspecified organism Status: Acute (2) Osteomyelitis Code(s): M86.9 - Osteomyelitis, unspecified Status: Acute (3) DM (diabetes mellitus) Code(s): E11.9 - Type 2 diabetes mellitus without complications Status: Acute - Plan R 2nd digit laceration; suspect osteomyelitis Impression: Patient has noticed visual changes x3 days; PMH DM with some distal LE tingling suggestive of neuropathy Foot XR- Resorption of the tuft of the second distal phalanx with overlying soft tissue swelling; characteristic of osteomyelitis ESR 49 -MRI to assess further -Podiatry consulted -anticipate OR visit for 2nd digit amputation -Will check LYNDSEY's -discussed risks/benefits/alternatives -Continue empiric antibiotic coverage -Continue Vancomycin; will change Cefepime to Zosyn -ID consulted -Since T2DM/HTN, will risk stratify for surgery with pre-op EKG Sepsis Impression: HR 106, WBC 12 on admission with R toe as source. Since has had resolution of leukocytosis and HR -Monitor blood cultures -Continue IV antibiotics DM Impression: Blood glucose levels in 200's-300's on admission. Reported stable control of blood glucose levels at home on ~Novolin 14 U BID. Sees eye provider regularly; some concern for tingling/early neuropathy. On ASA for ASCVD risk; not on JOHNNA or statin -Will start low dose Lisinopril 5mg daily for renal protection -Will plan to assess further with A1C, lipid panel -Will start Levemir 5U HS -Will continue SS insulin HTN Impression: Intermittent HTN since admission -Will give PRN Enalapril -Will start Lisinopril 5mg daily DVT PPX Heparin 5 K U BID Addendum Discussed with patient's family- anxiety about possibility of surgery. Patient' s would like to discuss with Podiatry benefits/risks of antibiotics vs surgical intervention also (2) Osteomyelitis Qualifiers: Osteomyelitis type: other acute Osteomyelitis location: foot Laterality: right Qualified Code(s): M86.171 - Other acute osteomyelitis, right ankle and foot (3) DM (diabetes mellitus) Qualifiers: Diabetes mellitus intermission coordinator insulin use: with prison use
--- NOTE | 2017-09-09 16:00 | ECHRPT ---
EXAM DATE: 09/09/2017 2:08 PM EDT AGE/SEX: 51 years / Female INDICATIONS: Sepsis, Osteomyelitis CLINICAL DATA: This is the patient's initial encounter. Patient reports that signs and symptoms have been present for > 1 year and indicates a pain score of 4/10. MEDICAL/SURGICAL HISTORY: . Diabetes . Amputation right foot, third digit. COMPARISON: No prior exams available for comparison. TECHNIQUE: Four-cuff ankle and brachial pressures were obtained. Pulse cuff waveform tracings of the ankles were recorded, and ankle-brachial indices were calculated. PRESSURES (mmHg): Brachial (arm) : RIGHT: IV SITE, LEFT: 80 Ankle : RIGHT: 163, LEFT: 165 Toe : RIGHT: 104, LEFT: 92 LYNDSEY : RIGHT: 2.04, LEFT: 2.06 FINDINGS: Pulsed-Cuff Waveform: Blunted waveforms bilaterally, worse on the left. Other: None. CONCLUSION: 1. Ankle-brachial index is approximately 2 on both the right and the left, likely artifactually elev ated from arteriosclerotic disease related to diabetes. Electronically signed by: German Masterson MD 09/09/2017 3:58 PM EDT
[2017-09-09] MEDS: Piperacil/Tazo 3.375 GM Premix 50 ML IV.SIG SCH ×2 (16:26→20:31)
[2017-09-09] MEDS ORDERED: Lisinopril 5 MG Tablet PO SCH (17:00)
[2017-09-09] MEDS ORDERED: Insulin Detemir Inj 1,000 UNIT/10 ML Vial SQ SCH (21:00)
--- NOTE | 2017-09-09 23:11 | P.CONID ---
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 presents with R 2nd toe swelling, ulcer, pain x few days MRI + for osteo She was seen by Dr Viramontes PMH: PSH: L foot with mult toes amputaions Fam history: non contributory Review of Systems All other systems reviewed negative except as stated in HPI PMFSH - History History Provided By: Patient - Medical History Medical History: Medical History (Last Reviewed 11/07/17 @ 11:44 by Mee Burns MD) Diabetes - Social History I have reviewed the patient's Social History: Yes - Tobacco History Second Hand Smoke Exposure: No Tobacco Use In Past 30 Days: No Smoking Status: Never smoker - Alcohol History How Often Do You Have a Drink Containing Alcohol: Never - Substance Use History Substance History: No History of Abuse - Travel History Recent Travel in the [place] Within the Last 8 Weeks: No Recent Travel Out of the Country Within the Last 8 Weeks: Yes - Immunization History Tetanus Immunization: Unsure Hx Influenza Vaccine This Season: No Medications and Allergies Active Medications: Active Medications Acetaminophen (Tylenol) 650 mg PO Q4H PRN PRN Reason: Temp > 100.4 Hydrocodone Bitart/Acetaminophen (Retsof 5/325) 1 tab PO Q4H PRN PRN Reason: PAIN 3-5 Al Hydroxide/Mg Hydroxide (Milk Of Magnesia Liq) 30 ml PO Q12H PRN PRN Reason: Mild Constipation Bisacodyl (Dulcolax Supp) 10 mg RECTAL DAILY PRN PRN Reason: SEVERE CONSITIPATION Dextrose (D50w Vial) 50 ml IV.PUSH UNSCH PRN PRN Reason: PER HYPOGLYCEMIA PROTOCOL Diphenhydramine HCl (Benadryl Inj) 25 mg IV.PUSH Q6H PRN PRN Reason: ITCHING/RASH Last Admin: 09/08/17 22:42 Dose: 25 mg Enalaprilat (Vasotec Inj) 1.25 mg IV.PUSH Q8H PRN PRN Reason: SBP>160, DBP>90 Glucagon (Glucagon Inj) 1 mg OTHER PRN PRN PRN Reason: for Hypoglycemia Protocol Heparin Sodium (Porcine) (Heparin Inj) 5,000 units SQ Q12H [facility] Last Admin: 09/09/17 20:17 Dose: 5,000 units Sodium Chloride (Ns Inj) 1,000 mls @ 100 mls/hr IV.CONT .Q10H [facility] Last Admin: 09/09/17 17:25 Dose: Not Given Pharmacy Profile Note (Vancomycin Consult Pharmacy) 0 mls @ 0 mls/hr OTHER UNSCH [facility] Vancomycin HCl 1,500 mg/ (Sodium Chloride) 515 mls @ 250 mls/hr IV.SIG Q12H [facility] Last Admin: 09/09/17 22:50 Dose: 250 mls/hr Piperacillin/Tazobactam/Dextrose (Zosyn 3.375 Gm Premix) 50 mls @ 100 mls/hr IV.SIG Q6H [facility] Last Infusion: 09/09/17 21:15 Dose: Infused Insulin Aspart (Novolog Insulin Correctional Sugar Inj) 0 unit SQ [facility]; Protocol Last Admin: 09/09/17 20:18 Dose: 5 unit Insulin Detemir (Levemir Inj) 5 unit SQ HS [facility] Last Admin: 09/09/17 20:17 Dose: 5 unit Lactulose (Lactulose Liq) 30 ml PO DAILY PRN PRN Reason: SEVERE CONSITIPATION Lisinopril (Prinivil) 5 mg PO DAILY@1700 [facility] Last Admin: 09/09/17 16:27 Dose: Not Given Miscellaneous Information ([facility] Ordered Lab Info) 0 each OTHER ONCE ONE Stop: 09/10/17 09:46 Morphine Sulfate (Morphine Inj) 2 mg IV.PUSH Q4H PRN PRN Reason: PAIN 6-10 Ondansetron HCl (Zofran Odt) 4 mg PO Q6H PRN PRN Reason: NAUSEA OR VOMITING Senna/Docusate Sodium (Felecia-Colace) 1 tab PO BID [facility] Last Admin: 09/09/17 20:17 Dose: Not Given Sennosides (Senokot) 17.2 mg PO Q12H PRN PRN Reason: Moderate Constipation Temazepam (Restoril) 15 mg PO HS PRN PRN Reason: INSOMNIA Allergies Allergy/AdvReac Type Severity Reaction Status Date / Time No Known Allergies Allergy Unverified 09/08/17 16:37 Home Medications Medication Instructions Recorded Confirmed Type insulin NPH and regular human 1 sliding scale dose SUB-Q UD 09/08/17 09/08/17 History [Novolin 70/30 U-100 Insulin] Exam Vital signs: Vital Signs 09/09/17 00:00 09/09/17 04:00 09/09/17 05:17 Temperature 97.9 F 98.6 F Pulse Rate 82 84 85 Respiratory Rate 20 20 Blood Pressure 123/60 132/81 Pulse Oximetry 95 99 09/09/17 08:00 09/09/17 12:00 09/09/17 16:00 Temperature 97.9 F 97.4 F L 97.4 F L Pulse Rate 81 105 H 85 Respiratory Rate 17 17 17 Blood Pressure 125/68 184/82 H 115/62 Pulse Oximetry 96 96 98 09/09/17 20:00 09/09/17 20:05 Temperature 98 F Pulse Rate 85 84 Respiratory Rate 18 Blood Pressure 147/70 H Pulse Oximetry 98 Intake & Output 09/09/17 09/09/17 09/10/17 06:59 18:59 06:59 Intake Total 565 / 565 2290 / 2290 50 / 50 Balance 565 / 565 2290 / 2290 50 / 50 Weight 72.5 kg Intake: IV 565 / 565 1665 / 1665 50 / 50 NS Inj 1,000 ML @ 100 mls/hr IV 1000 / 1000 .CONT .Q10H [facility] Rx#:[id number] Maxipime Inj 1,000 MG In NS Inj 100 / 100 100 ML @ 200 mls/hr IV.SIG Q12H [facility] Rx#:[id number] Zosyn 3.375 GM Premix 50 ML @ 50 / 50 50 / 50 50 / 50 100 mls/hr IV.SIG Q6H [facility] Rx#: [id number] Vancomycin Inj 1,500 MG In NS 515 / 515 515 / 515 Inj 500 ML @ 250 mls/hr IV.SIG Q12H [facility] Rx#:[id number] Oral 625 / 625 Other: # Voids 2 3 Date of Last Bowel Movement 09/09/17 # Bowel Movements 2 Weight On Admission 72.575 kg - Constitutional no acute distress, obese - Routine HEENT Exam Head: Present: normocephalic, atraumatic Eye: Present: EOMI, PERRL ENT: Present: mucous membranes moist, oropharynx clear - Routine Neck Exam Present: supple, full ROM - Routine Respiratory Exam Present: CTA bilaterally Comments: no resp distress good air entry - Routine Cardiovascular Exam Present: RRR, S1, S2 Comments: warm well perused perifery excellent pedal pulses - Routine Abdominal Exam Present: soft, normoactive bowel sounds Comments: not tender not distedned no organomegaly no masses - Routine Extremities Exam Comments: no cyanosis, no clubbing well healed scars from multiple toes amputations on the L foot foot is deformed R foot with edematoes, erythematou 2nd R toe and ulcer dry based on the tip of it No ascending cellulits, lymphangitis + palpable enlarged ipsilateral lymph nodule Results - Labs CBC & Chem 7: 09/10/17 06:39 09/10/17 06:39 Labs: Laboratory Results - last 24 hr 09/09/17 09/09/17 09/09/17 07:37 07:50 07:50 WBC 9.6 RBC 4.27 Hgb 12.2 Hct 35.8 MCV 83.9 MCH 28.6 MCHC 34.1 RDW 12.6 Plt Count 319 MPV 6.8 L Neut % (Auto) 62.1 Lymph % (Auto) 29.7 [place] % (Auto) 6.6 Eos % (Auto) 1.2 Baso % (Auto) 0.4 Neut # (Auto) 6.0 Lymph # (Auto) 2.9 [place] # (Auto) 0.6 Eos # (Auto) 0.1 Baso # (Auto) 0.0 WBC Differential . Differential Comment Auto diff final Sodium 138 Potassium 4.4 Chloride 107 Carbon Dioxide 25.6 Anion Gap 5 BUN 15 Creatinine 0.72 Estimated GFR 85 L POC Glucose 280 H Random Glucose 296 H Hemoglobin A1c Calcium 8.3 L Total Bilirubin 0.4 AST 29 ALT 36 Alkaline Phosphatase 72 C-Reactive Protein Total Protein 7.4 D Albumin 2.8 L 09/09/17 09/09/17 09/09/17 07:50 07:50 11:58 WBC RBC Hgb Hct MCV MCH MCHC RDW Plt Count MPV Neut % (Auto) Lymph % (Auto) [place] % (Auto) Eos % (Auto) Baso % (Auto) Neut # (Auto) Lymph # (Auto) [place] # (Auto) Eos # (Auto) Baso # (Auto) WBC Differential Differential Comment Sodium Potassium Chloride Carbon Dioxide Anion Gap BUN Creatinine Estimated GFR POC Glucose 302 H Random Glucose Hemoglobin A1c 9.8 H Calcium Total Bilirubin AST ALT Alkaline Phosphatase C-Reactive Protein 8.99 H Total Protein Albumin 09/09/17 09/09/17 16:26 19:29 WBC RBC Hgb Hct MCV MCH MCHC RDW Plt Count MPV Neut % (Auto) Lymph % (Auto) [place] % (Auto) Eos % (Auto) Baso % (Auto) Neut # (Auto) Lymph # (Auto) [place] # (Auto) Eos # (Auto) Baso # (Auto) WBC Differential Differential Comment Sodium Potassium Chloride Carbon Dioxide Anion Gap BUN Creatinine Estimated GFR POC Glucose 341 H 281 H Random Glucose Hemoglobin A1c Calcium Total Bilirubin AST ALT Alkaline Phosphatase C-Reactive Protein Total Protein Albumin - Imaging Impressions Extremity Arterial Study 09/09/17 00:00 CONCLUSION: 1. Ankle-brachial index is approximately 2 on both the right and the left, likely artifactually elevated from arteriosclerotic disease related to diabetes. Foot MRI 09/09/17 00:00 CONCLUSION: 1. Destructive change and marrow edema involving the second distal phalanx characteristic of osteomyelitis. 2. Soft tissue edema involving the dorsal soft tissues. Assessment and Plan - Plan DM DFI R foot R second distal phalanx osteomyelitis cont broad spectrum abx agree with plan for amputaiton cont broad spectrum abx will satinder abx per cultures
[2017-09-10] MEDS: Insulin NovoLOG Aspart Correctional Sugar Inj SQ SCH ×2 (01:05→09:20)
[2017-09-10] MEDS: Piperacil/Tazo 3.375 GM Premix 50 ML IV.SIG SCH ×2 (02:56→09:34)
[2017-09-10] MEDS: Sod Chloride 0.9% Inj 1,000 ML IV.CONT SCH (05:01)
[2017-09-10 07:19] LABS: Baso % (Auto) 0.6 % (0.0-2.0); Eos # (Auto) 0.1 th/mm3 (0.0-0.4); Eos % (Auto) 1.5 % (0.0-4.0); Hematocrit 36.1 % (35.0-46.0); Hemoglobin 12.2 gm/dL (11.6-15.3); Lymph # (Auto) 2.6 th/mm3 (1.0-4.8); Lymph % (Auto) 33.4 % (9.0-44.0); Mean Corpuscular HGB Conc 33.9 % (32.0-36.0); Mean Corpuscular Hemoglobin 28.6 pg (27.0-34.0); Mean Corpuscular Volume 84.2 fL (80.0-100.0); Mean Platelet Volume 6.8 fL (7.0-11.0); Mono # (Auto) 0.5 th/mm3 (0.0-0.9); Mono % (Auto) 6.5 % (0.0-8.0); Neut # (Auto) 4.4 th/mm3 (1.8-7.7); Platelet Count 345 th/mm3 (150-450); Red Blood Count 4.29 mil/mm3 (4.00-5.30); Red Cell Distribution Width 12.3 % (11.6-17.2); White Blood Count 7.7 th/mm3 (4.0-11.0)
[2017-09-10 07:46] LABS: Calcium 8.8 mg/dL (8.5-10.1); Carbon Dioxide 26.7 meq/L (21.0-32.0); Potassium 4.2 meq/L (3.5-5.1)
[2017-09-10 07:50] LABS: Chol/HDL Ratio 5.45 Ratio; HDL Cholesterol 29.9 mg/dL (40.0-60.0)
[2017-09-10] MEDS: Heparin - SQ 10,000 UNITS/ML Vial SQ SCH (09:21)
[2017-09-10] MEDS: Senna/Docusate Sodium 8.6/50 MG Tablet PO SCH (09:24)
[2017-09-10] MEDS ORDERED: Pharmacy Ordered Lab Info OTHER ONE (09:45)
--- NOTE | 2017-09-10 10:29 | P.PNIM ---
Subjective Interval history: Mrs. Somers was afebrile with intermittent HTN overnight. Patient accompanied by her and family; they state that they have to return to [place] tomorrow so need to leave the hospital this afternoon. They understand the risks of her toe infection and need for treatment; they state that they plan to get admitted to a hospital in [place] once they arrive. They are agreeable with leaving against advice so that they can get back to [place]. Patient states she did well overnight. She has stable blood glucoses at home despite elevations here. Supplemental history revealed she has a home statin. She is reluctant to continue Lisinopril due to hypotension at home. Physical Exam Vital signs: Vital Signs 09/09/17 12:00 09/09/17 16:00 09/09/17 20:00 Temperature 97.4 F L 97.4 F L 98 F Pulse Rate 105 H 85 85 Respiratory Rate 17 17 18 Blood Pressure 184/82 H 115/62 147/70 H Pulse Oximetry 96 98 98 09/09/17 20:05 09/10/17 00:00 09/10/17 04:00 Temperature 98.2 F 97.9 F Pulse Rate 84 72 83 Respiratory Rate 16 16 Blood Pressure 117/62 136/65 Pulse Oximetry 98 98 Intake & Output 09/09/17 09/10/17 09/10/17 18:59 06:59 18:59 Intake Total 3290 / 3290 855 / 855 Balance 3290 / 3290 855 / 855 Weight 72.5 kg Intake: IV 2665 / 2665 615 / 615 NS Inj 1,000 ML @ 100 mls/hr IV 1999 / 1999 .CONT .Q10H [facility] Rx#:[id number] Maxipime Inj 1,000 MG In NS Inj 100 / 100 100 ML @ 200 mls/hr IV.SIG Q12H [facility] Rx#:[id number] Zosyn 3.375 GM Premix 50 ML @ 50 / 50 100 / 100 100 mls/hr IV.SIG Q6H [facility] Rx#: [id number] Vancomycin Inj 1,500 MG In NS 515 / 515 515 / 515 Inj 500 ML @ 250 mls/hr IV.SIG Q12H [facility] Rx#:[id number] Oral 625 / 625 240 / 240 Other: # Voids 3 2 Date of Last Bowel Movement 09/09/17 # Bowel Movements 2 Narrative: Gen: NAD HEENT: EOM grossly I Skin: No visible lesions; R 2nd toe/foot lesion - swollen; serous/slightly opaque drainage. Nontender to touch CV: Regular rate and rhythm; no murmurs. Adequate DP pulses bilaterally Resp: CTAB; normal rate Abdominal: Soft, nontender, nondistended Ext: Grossly normal ROM and motor function Neuro: Awake, alert. Grossly normal ROM. Grossly normal peripheral motor/ sensory function Results - Labs CBC & Chem 7: 09/10/17 06:39 09/10/17 06:39 Laboratory Results - last 24 hr 09/09/17 09/09/17 09/09/17 07:50 07:50 11:58 WBC RBC Hgb Hct MCV MCH MCHC RDW Plt Count MPV Neut % (Auto) Lymph % (Auto) [place] % (Auto) Eos % (Auto) Baso % (Auto) Neut # (Auto) Lymph # (Auto) [place] # (Auto) Eos # (Auto) Baso # (Auto) WBC Differential Differential Comment Sodium Potassium Chloride Carbon Dioxide Anion Gap BUN Creatinine Estimated GFR POC Glucose 302 H Random Glucose Hemoglobin A1c 9.8 H Calcium C-Reactive Protein 8.99 H Triglycerides Cholesterol LDL Cholesterol, Calc HDL Cholesterol Cholesterol/HDL Ratio 09/09/17 09/09/17 09/10/17 16:26 19:29 06:39 WBC 7.7 RBC 4.29 Hgb 12.2 Hct 36.1 MCV 84.2 MCH 28.6 MCHC 33.9 RDW 12.3 Plt Count 345 MPV 6.8 L Neut % (Auto) 58.0 Lymph % (Auto) 33.4 [place] % (Auto) 6.5 Eos % (Auto) 1.5 Baso % (Auto) 0.6 Neut # (Auto) 4.4 Lymph # (Auto) 2.6 [place] # (Auto) 0.5 Eos # (Auto) 0.1 Baso # (Auto) 0.0 WBC Differential . Differential Comment Auto diff final Sodium Potassium Chloride Carbon Dioxide Anion Gap BUN Creatinine Estimated GFR POC Glucose 341 H 281 H Random Glucose Hemoglobin A1c Calcium C-Reactive Protein Triglycerides Cholesterol LDL Cholesterol, Calc HDL Cholesterol Cholesterol/HDL Ratio 09/10/17 09/10/17 06:39 09:12 WBC RBC Hgb Hct MCV MCH MCHC RDW Plt Count MPV Neut % (Auto) Lymph % (Auto) [place] % (Auto) Eos % (Auto) Baso % (Auto) Neut # (Auto) Lymph # (Auto) [place] # (Auto) Eos # (Auto) Baso # (Auto) WBC Differential Differential Comment Sodium 139 Potassium 4.2 Chloride 104 Carbon Dioxide 26.7 Anion Gap 8 BUN 12 Creatinine 0.90 Estimated GFR 66 L POC Glucose 331 H Random Glucose 315 H Hemoglobin A1c Calcium 8.8 C-Reactive Protein Triglycerides 208 H Cholesterol 163 LDL Cholesterol, Calc 92 HDL Cholesterol 29.9 L Cholesterol/HDL Ratio 5.45 Microbiology 09/08/17 20:35 Wound - Toe Gram Stain - Final - Imaging Impressions Extremity Arterial Study 09/09/17 00:00 CONCLUSION: 1. Ankle-brachial index is approximately 2 on both the right and the left, likely artifactually elevated from arteriosclerotic disease related to diabetes. Foot MRI 09/09/17 00:00 CONCLUSION: 1. Destructive change and marrow edema involving the second distal phalanx characteristic of osteomyelitis. 2. Soft tissue edema involving the dorsal soft tissues. Assessment and Plan - Assessment (1) Sepsis Code(s): A41.9 - Sepsis, unspecified organism Status: Acute (2) Osteomyelitis Code(s): M86.9 - Osteomyelitis, unspecified Status: Acute (3) DM (diabetes mellitus) Code(s): E11.9 - Type 2 diabetes mellitus without complications Status: Acute - Plan R 2nd digit laceration; suspect osteomyelitis Impression: Patient has noticed visual changes x3 days; PMH DM with some distal LE tingling suggestive of neuropathy Foot XR- Resorption of the tuft of the second distal phalanx with overlying soft tissue swelling; characteristic of osteomyelitis ESR 49 -MRI- 2nd distal phalanx characteristic of osteomyelitis. Soft tissue edema involving dorsal soft tissues LYNDSEY- ~2 bilaterally -Podiatry consulted -anticipate OR visit for 2nd digit amputation -discussed risks/benefits/alternatives -Continue empiric antibiotic coverage -Continue Vancomycin; will change Cefepime to Zosyn -ID consulted -Continue Vancomycin, Zosyn -Agree with amputation -Monitor cultures -Since T2DM/HTN, will risk stratify for surgery with pre-op EKG -Possible left atrial enlargement/old septal OR per computer read; unremarkable per my read Sepsis Impression: HR 106, WBC 12 on admission with R toe as source. Since has had resolution of leukocytosis and HR -Monitor blood cultures -Continue IV antibiotics Cardiovascular DM Impression: Blood glucose levels in 200's-300's on admission. Reported stable control of blood glucose levels at home on ~Novolin 14 U BID. Sees eye provider regularly; some concern for tingling/early neuropathy. On ASA for ASCVD risk; not on JOHNNA or statin -Will start low dose Lisinopril 5mg daily for renal protection -Conitue Levemir 5U HS -Will continue SS insulin HTN Impression: Intermittent HTN since admission. Patient reports hypotension at home -Will give PRN Enalapril -Started Lisinopril 5mg daily; patient will discuss further with her PCP at discharge DVT PPX Heparin 5 K U BID Discussed with patient and family that IV antibiotics and amputation recommended; since they state they must leave will plan to give oral antibiotics on discharge until they can get to hospital in [place] Discharge Planning: Patient will leave AMA this afternoon; will plan to get ID recs prior to discharge for oral antibiotics until they get seen at hospital in [place] Addendum Patient will leave AMA. Will send records and follow cultures. She will go to hospital tomorrow at [place]. Will discharge home on Doxycycline and Augmentin (2) Osteomyelitis Qualifiers: Osteomyelitis type: other acute Osteomyelitis location: foot Laterality: right Qualified Code(s): M86.171 - Other acute osteomyelitis, right ankle and foot (3) DM (diabetes mellitus) Qualifiers: Diabetes mellitus chcf insulin use: with lobsterman use
[2017-09-10] MEDS: Vancomycin Inj 1,500 MG in Sodium Chlor 0.9% Inj 500 ML IV.SIG SCH (10:45)
--- NOTE | 2017-09-11 00:25 | ECG ---
Date Performed: 09/09/2017 Time Performed: 14:50:38 PTAGE: 51 years EKG: Sinus rhythm POSSIBLE LEFT ATRIAL ENLARGEMENT LOW QRS VOLTAGE IN PRECORDIAL LEADS PATTERN CONSISTENT WITH PULMONA RY DISEASE SEPTAL MYOCARDIAL INFARCTION , PROBABLY OLD ABNORMAL ECG NO PREVIOUS TRACING DOCTOR: Reg Ceja Interpretating Date/Time 09/11/2017 00:25:13
== END 2017-09-10 16:15 | disposition left against medical advice (07) ==
LOC: NEPC 15:26 → NEDA 19:40 → N07 20:48
PROVIDERS: ADMIT Family Medicine; ATTEND Family Medicine